=== PATIENT | female | born 1995 | race Caucasian/White ===

== ENCOUNTER 2019-01-27 19:02 | Inpatient (IN) | payer OTHER ==
[~2019-01-27] VITALS: Ht 167.6 cm; Wt 104.4 kg
[2019-01-27] MEDS: NS(*) 0.9% 1000 ML BAG 1,000 ML IV ONE ×2 (19:08→20:17)
--- NOTE | 2019-01-27 19:08 | ER Report ---
History and Physical Time Seen By MD: 19:00 HPI/ROS CHIEF COMPLAINT: Overdose HISTORY OF PRESENT ILLNESS: 23-year-old female proximally 25 minutes prior to EMS arriving. She took 14 Ambien 12.5 mg extended release and approximately 30 Klonopin 0.5 mg. She did state that she vomited. On arrival she is very somnolent, but awake and alert and oriented 3. She denies any alcohol ingestion. She states this is a suicidal attempt. Patient has stable vital signs on arrival. EMS established peripheral IV and laith bloods. Patient takes Adderall and lip to do for mood control. She was seen over at [facility] in September and October with increasing depression with little help or improvement. Patient recently broke up with her boyfriend the last few days. Patient reports having suicidal thoughts for several weeks, has been researching on the Internet and appropriate dose of medication that would kill her. Her physician that prescribed her medication is in [place], [place]. REVIEW OF SYSTEMS: Respiratory: No cough, no dyspnea. Cardiovascular: No chest pain, no palpitations. Gastrointestinal: No vomiting, no abdominal pain. Musculoskeletal: No back pain. Allergies: Coded Allergies: No Known Drug Allergies (Unverified , 01/27/19) Home Meds Reported Medications Zolpidem Tartrate (AMBIEN) 10 Mg Tablet, 12.5 TAB PO QHS, TAB 01/27/19 Clonazepam (CLONAZEPAM) 0.5 Mg Tablet, 0.5 MG PO BID, #6 TAB 01/27/19 Spironolactone (SPIRONOLACTONE) 25 Mg Tablet, 100 MG PO, TAB 01/27/19 Metformin Hcl (METFORMIN HCL) 500 Mg Tablet, 1 TAB PO BID, TAB 01/27/19 Lurasidone Hcl (LATUDA) 20 Mg Tablet, 20 MG PO 01/27/19 Amphet Asp/Amphet/D-Amphet (ADDERALL 20 MG TABLET) 20 Mg Tablet, 20 MG PO 01/27/19 Reviewed Nurses Notes: Yes Old Medical Records Reviewed: Yes Constitutional Vital Sign - Last 24 Hours 01/27/19 01/27/19 01/27/19 01/27/19 19:02 19:02 19:05 19:05 Pulse ? B/P (MAP) 125/95 (105) 125/95 (105) 701/27/19 01/27/19 01/27/19 19:07 19:07 19:09 19:09 Pulse 90 Resp 21 B/P (MAP) 130/87 (101) 130/87 (101) Pulse Ox 99 O2 Flow Rate 3.0 01/27/19 01/27/19 01/27/19 01/27/19 19:10 19:12 19:17 19:17 Temp 98.7 Pulse 84 83 83 Resp 12 10 12 B/P (MAP) 125/95 125/84 (98) 125/84 (98) Pulse Ox 84 96 100 O2 Delivery Room Air 01/27/19 01/27/19 01/27/19 01/27/19 19:20 19:20 19:22 19:27 Pulse 82 84 Resp 16 10 B/P (MAP) 129/87 (101) 129/87 (101) Pulse Ox 100 100 01/27/19 01/27/19 01/27/19 01/27/19 19:30 19:30 19:32 19:32 Pulse 89 89 Resp 10 10 B/P (MAP) 122/78 (93) 122/78 (93) Pulse Ox 100 100 01/27/19 01/27/19 01/27/19 01/27/19 19:37 19:40 19:40 19:42 Pulse 83 84 Resp 16 10 B/P (MAP) 120/82 (95) 120/82 (95) Pulse Ox 100 100 01/27/19 01/27/19 01/27/19 01/27/19 19:47 19:50 19:50 19:52 Pulse 86 84 Resp 19 15 B/P (MAP) 123/81 (95) 123/81 (95) Pulse Ox 100 100 01/27/19 01/27/19 01/27/19 01/27/19 19:57 20:00 20:00 20:02 Pulse 86 81 Resp 9 12 B/P (MAP) 121/81 (94) 121/81 (94) Pulse Ox 100 100 01/27/19 01/27/19 01/27/19 01/27/19 20:02 20:07 20:10 20:10 Pulse 81 79 Resp 12 10 B/P (MAP) 118/80 (93) 118/80 (93) Pulse Ox 100 99 7/801/27/19 01/27/19 01/27/19 20:12 20:17 20:20 20:20 Pulse 80 77 Resp 12 22 B/P (MAP) 122/84 (97) 122/84 (97) Pulse Ox 99 99 01/27/19 01/27/19 01/27/19 01/27/19 20:22 20:27 20:30 20:30 Pulse 77 83 Resp 18 7 B/P (MAP) 123/84 (97) 123/84 (97) Pulse Ox 100 100 01/27/19 01/27/19 01/27/19 01/27/19 20:32 20:32 20:37 20:40 Pulse 94 94 103 Resp 23 23 9 B/P (MAP) 134/89 (104) Pulse Ox 100 100 100 01/27/19 01/27/19 01/27/19 01/27/19 20:40 20:45 20:50 20:55 Pulse 88 90 90 Resp 15 17 13 B/P (MAP) 134/89 (104) 121/81 (94) Pulse Ox 97 98 100 01/27/19 01/27/19 01/27/19 01/27/19 21:00 21:05 21:10 21:15 Pulse 93 97 83 84 Resp 11 14 11 14 B/P (MAP) 121/78 (92) 121/90 (100) Pulse Ox 96 94 100 100 01/27/19 21:20 Pulse 88 Resp 32 B/P (MAP) 122/85 (97) Pulse Ox 96 Intake and Output 01/27/19 01/27/19 01/28/19 15:02 23:02 07:02 Output Total 100 ml Balance -100 ml Physical Exam Vital signs stable, afebrile, pulse ox normal General Appearance: The patient is alert, has no immediate need for airway protection and no current signs of toxicity. Somnolent but alert and oriented 3 HEENT: Pupils equal and round no injection. Oropharynx without redness or exudate Respiratory: Chest is non tender, lungs are clear to auscultation. Cardiac: regular rate and rhythm Gastrointestinal: Abdomen is soft and non tender, no masses, bowel sounds normal. Musculoskeletal: Neck: Neck is supple and non tender. Extremities have full range of motion and are non tender. Skin: No rashes or lesions. DIFFERENTIAL DIAGNOSIS: After history and physical exam differential diagnosis was considered for depression including functional and major depression, situational depression, medication side effect, drugs and alcohol abuse. Medical Decision Making Data Points Result Diagram: 01/27/19190601/27/191906 Laboratory Hematology Test 01/27/19 19:07 01/27/19 19:20 Red Blood Count 4.72 M/uL (4.17-5.56) Mean Corpuscular Volume 87.9 fL (80.0-96.0) Mean Corpuscular Hemoglobin 30.0 pg (26.0-33.0) Mean Corpuscular Hemoglobin Concent 34.1 g/dL (32.0-36.0) Red Cell Distribution Width 14.0 % (11.5-14.5) Mean Platelet Volume 7.7 fL (7.2-11.1) Neutrophils (%) (Auto) 62.1 % (39.4-72.5) Lymphocytes (%) (Auto) 27.5 % (17.6-49.6) Monocytes (%) (Auto) 7.4 % (4.1-12.4) Eosinophils (%) (Auto) 2.5 % (0.4-6.7) Basophils (%) (Auto) 0.5 % (0.3-1.4) Nucleated RBC Relative Count (auto) 0.0 /100WBC Neutrophils # (Auto) 4.8 K/uL (2.0-7.4) Lymphocytes # (Auto) 2.1 K/uL (1.3-3.6) Monocytes # (Auto) 0.6 K/uL (0.3-1.0) Eosinophils # (Auto) 0.2 K/uL (0.0-0.5) Basophils # (Auto) 0.0 K/uL (0.0-0.1) Nucleated RBC Absolute Count (auto) 0.00 K/uL Sodium Level 141 mmol/L (137-145) Potassium Level 3.8 mmol/L (3.5-5.0) Chloride Level 103 mmol/L (98-107) Carbon Dioxide Level 24 mmol/L (22-31) Blood Urea Nitrogen 12 mg/dl (7-18) Creatinine 1.00 mg/dl (0.52-1.04) Glomerular Filtration Rate Calc > 60.0 Random Glucose 106 mg/dl (75-110) Calcium Level 10.1 mg/dl (8.4-10.2) Magnesium Level 1.7 mg/dl (1.7-2.2) Total Bilirubin 0.7 mg/dl (0.2-1.3) Aspartate Amino Transf (AST/SGOT) 20 U/L (0-35) Alanine Aminotransferase (ALT/SGPT) 28 U/L (0-56) Alkaline Phosphatase 66 U/L (0-126) Total Protein 8.2 g/dl (6.3-8.2) Albumin 4.8 g/dl (3.5-5.0) Salicylates Level < 10 mg/L Salicylate Last Dose Date unk Serum Alcohol < 10 mg/dl Urine Color Yellow Urine Clarity Cloudy Urine pH 6.0 pH (4.8-9.5) Urine Specific [place] 1.012 Urine Protein 30 mg/dL (NEGATIVE) Urine Glucose (UA) Negative mg/dL (NEGATIVE) Urine Ketones Negative mg/dL (NEGATIVE) Urine Blood Negative (NEGATIVE) Urine Nitrite Positive (NEGATIVE) Urine Bilirubin Negative (NEGATIVE) Urine Urobilinogen Negative mg/dL (0.2-1.9) Urine Leukocyte Esterase Moderate (NEGATIVE) Urine RBC 1 /HPF (0-2/HPF) Urine WBC 8 /HPF (0-5/HPF) Urine Squamous Epithelial Cells Many /LPF (</=FEW) Urine Bacteria Few /HPF (NONE-FEW) Urine Hyaline Casts Few /LPF (NONE-FEW) Urine Mucus Few /HPF (NONE-FEW) Urine HCG, Qualitative Negative (NEGATIVE) Urine Opiates Screen Negative Urine Barbiturates Screen Negative Ur Tricyclic Antidepressants Screen Negative Urine Phencyclidine Screen Negative Urine Amphetamines Screen Positive Urine Benzodiazepines Screen Negative Urine Cocaine Screen Negative Urine Cannabinoids Screen Negative Chemistry Test 01/27/19 19:07 01/27/19 19:20 White Blood Count 7.8 k/uL (4.5-11.0) Red Blood Count 4.72 M/uL (4.17-5.56) Hemoglobin 14.2 g/dL (12.0-16.0) Hematocrit 41.5 % (34.0-47.0) Mean Corpuscular Volume 87.9 fL (80.0-96.0) Mean Corpuscular Hemoglobin 30.0 pg (26.0-33.0) Mean Corpuscular Hemoglobin Concent 34.1 g/dL (32.0-36.0) Red Cell Distribution Width 14.0 % (11.5-14.5) Platelet Count 289 K/uL (150-450) Mean Platelet Volume 7.7 fL (7.2-11.1) Neutrophils (%) (Auto) 62.1 % (39.4-72.5) Lymphocytes (%) (Auto) 27.5 % (17.6-49.6) Monocytes (%) (Auto) 7.4 % (4.1-12.4) Eosinophils (%) (Auto) 2.5 % (0.4-6.7) Basophils (%) (Auto) 0.5 % (0.3-1.4) Nucleated RBC Relative Count (auto) 0.0 /100WBC Neutrophils # (Auto) 4.8 K/uL (2.0-7.4) Lymphocytes # (Auto) 2.1 K/uL (1.3-3.6) Monocytes # (Auto) 0.6 K/uL (0.3-1.0) Eosinophils # (Auto) 0.2 K/uL (0.0-0.5) Basophils # (Auto) 0.0 K/uL (0.0-0.1) Nucleated RBC Absolute Count (auto) 0.00 K/uL Glomerular Filtration Rate Calc > 60.0 Calcium Level 10.1 mg/dl (8.4-10.2) Magnesium Level 1.7 mg/dl (1.7-2.2) Total Bilirubin 0.7 mg/dl (0.2-1.3) Aspartate Amino Transf (AST/SGOT) 20 U/L (0-35) Alanine Aminotransferase (ALT/SGPT) 28 U/L (0-56) Alkaline Phosphatase 66 U/L (0-126) Total Protein 8.2 g/dl (6.3-8.2) Albumin 4.8 g/dl (3.5-5.0) Salicylates Level < 10 mg/L Salicylate Last Dose Date unk Serum Alcohol < 10 mg/dl Urine Color Yellow Urine Clarity Cloudy Urine pH 6.0 pH (4.8-9.5) Urine Specific [place] 1.012 Urine Protein 30 mg/dL (NEGATIVE) Urine Glucose (UA) Negative mg/dL (NEGATIVE) Urine Ketones Negative mg/dL (NEGATIVE) Urine Blood Negative (NEGATIVE) Urine Nitrite Positive (NEGATIVE) Urine Bilirubin Negative (NEGATIVE) Urine Urobilinogen Negative mg/dL (0.2-1.9) Urine Leukocyte Esterase Moderate (NEGATIVE) Urine RBC 1 /HPF (0-2/HPF) Urine WBC 8 /HPF (0-5/HPF) Urine Squamous Epithelial Cells Many /LPF (</=FEW) Urine Bacteria Few /HPF (NONE-FEW) Urine Hyaline Casts Few /LPF (NONE-FEW) Urine Mucus Few /HPF (NONE-FEW) Urine HCG, Qualitative Negative (NEGATIVE) Urine Opiates Screen Negative Urine Barbiturates Screen Negative Ur Tricyclic Antidepressants Screen Negative Urine Phencyclidine Screen Negative Urine Amphetamines Screen Positive Urine Benzodiazepines Screen Negative Urine Cocaine Screen Negative Urine Cannabinoids Screen Negative Toxicology Test 01/27/19 19:07 01/27/19 19:20 Salicylates Level < 10 mg/L Salicylate Last Dose Date unk Serum Alcohol < 10 mg/dl Urine Opiates Screen Negative Urine Barbiturates Screen Negative Ur Tricyclic Antidepressants Screen Negative Urine Phencyclidine Screen Negative Urine Amphetamines Screen Positive Urine Benzodiazepines Screen Negative Urine Cocaine Screen Negative Urine Cannabinoids Screen Negative Urinalysis Test 01/27/19 19:20 Urine Color Yellow Urine Clarity Cloudy Urine pH 6.0 pH (4.8-9.5) Urine Specific [place] 1.012 Urine Protein 30 mg/dL (NEGATIVE) Urine Glucose (UA) Negative mg/dL (NEGATIVE) Urine Ketones Negative mg/dL (NEGATIVE) Urine Blood Negative (NEGATIVE) Urine Nitrite Positive (NEGATIVE) Urine Bilirubin Negative (NEGATIVE) Urine Urobilinogen Negative mg/dL (0.2-1.9) Urine Leukocyte Esterase Moderate (NEGATIVE) Urine RBC 1 /HPF (0-2/HPF) Urine WBC 8 /HPF (0-5/HPF) Urine Squamous Epithelial Cells Many /LPF (</=FEW) Urine Bacteria Few /HPF (NONE-FEW) Urine Hyaline Casts Few /LPF (NONE-FEW) Urine Mucus Few /HPF (NONE-FEW) Urine HCG, Qualitative Negative (NEGATIVE) EKG/Imaging EKG Interpretation 12 lead EK Rhythm: normal sinus rhythm with sinus arrhythmia [place]: normal QRS: normal, corrected QT 401 ST segments: normal, no evidence of ischemia or dysrhythmia ED Course/Re-evaluation Clinical Indication for ER IV: Hydration, IV Access ED Course Patient was admitted to an examination room. H&P was done. The differential diagnoses was considered. Patient with a serious overdose potentially life- threatening. She will likely need supportive therapy potentially intubation and ventilator management. Patient on arrival is alert and oriented 3, very somnolent but arousable. Her vital signs are stable. Peripheral IVs are established. Patient took Ambien 12.5 continuous release #14, and clonazepam potentially #30 0.5 mg tablets. The prescription is from April 2017. 60 tablets were dispensed. Unsure how many were remaining. Patient estimates approximately 30 tablets. Patient did vomit up some pill fragments, but she is unsure how many came up. Patient was placed on an emergency custodial by police. Patient's tox screen was positive for amphetamines, but surprisingly no benzos despite taking 30 clonazepam. 01/27/2019 7:21:14 pm poison control was contacted for vised met on her management. They recommended supportive therapy for the present time. 01/27/2019 8:29:39 pm it was fairly somnolent and Romazicon 0.2 mg was given IV with little improvement, a 2nd dose of 0.3 mg was given. Patient appears more alert and responsive after a total of 0.5 mg. If patient continues to decompensate. We'll consider a Romazicon continuous drip. 01/27/2019 9:14:09 pm case discussed with Dr. Selene Charles hospitalist on-call, who accepts patient for admission to ICU for further monitoring of her mental status and vital signs after her overdose. Decision to Disposition Date: Jan 27, 2019 Decision to Disposition Time: 21:18 Critical Care Time I spent a total of 120 minutes of critical care time in obtaining history, performing a physical exam, bedside monitoring of interventions, collecting and interpreting tests and discussion with consultants but not including time spent performing procedures. Date of Report: Jan 27, 2019 Examiner: Dr. Sterling Darby Patient Detained By: Law Enforcement Date Patient Detained: Jan 27, 2019 Time Patient Detained: 18:53 Date Long Term Expires: Jan 30, 2019 Time Long Term Expires: 18:53 Legal Status: Police Hold: No Legal Status: Relationship: Single Legal Status: Residence: [facility] Resident Assessment Data Provided By: Patient, Family Member(s) Chief Complaint: Overdose, suicidal attempt HPI/ROS: 23-year-old female with a long history of depression, no previous mental health care, took an overdose of approximately 14. Ambien 12.5 continuous release tablets, and clonazepam 0.5 mg approximately 30 tablets approximately a half hour prior to arrival. Patient did vomit once. On arrival she is very sleepy. Her vitals are stable and noted by EMS. Diagnosis: Overdose Suicidal attempt Depression Risk Formulation: Patient reports multiple stressors. She's been unable to cope. Grandfather recently had a stroke. Patient's having trouble at work and also relationship, trouble with her boyfriend. Current Dangerous Risk Assess: Current Suicide Ideation Current Risk Summary: Patient took a high-risk overdose that is potentially life threatening. She will need to be monitored for 24-48 hours in ICU. Patient was placed on an emergency custodial by police officers. The custodial will be upheld. Depart Departure Latest Vital Signs Vital Signs Date Time Temp Pulse Resp B/P (MAP) Pulse Ox O2 Delivery O2 Flow Rate FiO2 01/27/19 21:20 88 32 122/85 (97) 96 01/27/19 19:10 98.7 Room Air 01/27/19 19:07 3.0 Impression: Primary Impression: Overdose Additional Impressions: Suicide attempt Depression Condition: Improved Disposition: Admitted from ER Problem Qualifiers Primary Impression: Overdose Encounter type: initial encounter Injury intent: intentional self-harm Qualified Codes: T50.902A - Poisoning by unspecified drugs, medicaments and biological substances, intentional self-harm, initial encounter Additional Impressions: Depression Depression Type: major depressive disorder Major depression recurrence: single episode Active/Remission status: currently active Major depression episode severity: unspecified Qualified Codes: F32.9 - Major depressive disorder, single episode, unspecified STERLING DARBY DO Jan 27, 2019 19:08
[2019-01-27 19:17] LABS: PLATELET COUNT, AUTOMATED 289 K/uL (150-450)
--- NOTE | 2019-01-27 19:39 | EKG ---
FACILITY: PATIENT NAME: CHAN MCCALL : [id number] MR: [id number] V: [id number] EXAM DATE: ORDERING PHYSICIAN: MOLLY DARBY TECHNOLOGIST: ALIE Test Reason : OD Blood Pressure : / mmHG Vent. Rate : 073 BPM Atrial Rate : 073 BPM P-R Int : 152 ms QRS Dur : 088 ms QT Int : 364 ms P-R-T Axes : 061 064 033 degrees QTc Int : 401 ms Sinus rhythm No acute appearing findings No previous ECGs available Confirmed by LATRICE VELAZQUEZ ([id number]) on 01/27/2019 7:45:58 PM Referred By: Confirmed By:LATRICE VELAZQUEZ
[2019-01-27] MEDS ORDERED: FLUMAZENIL 0.1 MG/ML 5 ML VIAL IVP ONE ×2 (20:05→23:40)
[2019-01-27] MEDS ORDERED: METF-450 PO (21:34)
[2019-01-27] MEDS ORDERED: LURA20TA PO (21:34)
[2019-01-27] MEDS ORDERED: AMPH20TA18 PO (21:34)
[2019-01-27] MEDS ORDERED: SPIR25TA80 PO (21:34)
[2019-01-27] MEDS ORDERED: CLON-331 PO (21:34)
[2019-01-27] MEDS ORDERED: ZOLP-350 PO (21:34)
[2019-01-27 22:54] VITALS: BP 137/90
[2019-01-27] MEDS ORDERED: NS(*) 0.9% 1000 ML BAG 1,000 ML IV PRN (23:05)
--- NOTE | 2019-01-27 23:29 | History & Physical ---
History of Present Illness Chief Complaint "I overdosed and tried to kill myself" History of Present Illness 23yo female with PMHx significant for depression and anxiety with suicidal ideations, polycystic ovarian disease. She reports she has had depression "for a long time" and has had intermittent suicidal ideations, but has not been admitted for a suicide attempt. She has been treated for depression/anxiety with Latuda, Klonopin, Ambien. She states she took 50 total of her Ambien and Klonopin in an attempt to kill herself. She denied any other medication or substance ingestion. She did vomit once while still at home and reports some pi lls were present. She was contacted shortly after this by her mother who then contacted the police to check on her. She was then transported to the [facility] ER. She was found to be moderately somnolent and mildly hypoxic, but otherwise stable. She was given one dose of Romazicon 0.5mg IV. At the present time she is tearful, awake, alert, and oriented x3. History Problems: (1) PCOD (polycystic ovarian disease) Status: Chronic (2) Anxiety associated with depression Status: Chronic (3) Depression Status: Chronic Home Meds Reported Medications Zolpidem Tartrate (AMBIEN) 10 Mg Tablet, 12.5 TAB PO QHS, TAB 01/27/19 Clonazepam (CLONAZEPAM) 0.5 Mg Tablet, 0.5 MG PO BID, #6 TAB 01/27/19 Spironolactone (SPIRONOLACTONE) 25 Mg Tablet, 100 MG PO, TAB 01/27/19 Metformin Hcl (METFORMIN HCL) 500 Mg Tablet, 1 TAB PO BID, TAB 01/27/19 Lurasidone Hcl (LATUDA) 20 Mg Tablet, 20 MG PO 01/27/19 Amphet Asp/Amphet/D-Amphet (ADDERALL 20 MG TABLET) 20 Mg Tablet, 20 MG PO 01/27/19 Allergies: Coded Allergies: No Known Drug Allergies (Unverified , 01/27/19) Other Social/Family Hx She is single and lives alone. She is sexually active. 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 Hx Smoking: No Hx Alcohol Use: Yes (OCC.) Hx Substance Use Disorder: No Review of Systems Constitutional: No Fever, No Chills Neurological: No Syncope Cardiovascular: No Chest Pain Respiratory: No Shortness of Breath Gastrointestinal: Nausea, Vomiting; No Hematemesis, No Hematochezia, No Melena, No Abdominal Pain Genitourinary: Other (menses are irregular); No Dysuria, No Hematuria Exam Vital Signs Vital Signs Date Time Temp Pulse Resp B/P (MAP) Pulse Ox O2 Delivery O2 Flow Rate FiO2 01/27/19 22:40 80 18 134/108 (117) 96 01/27/19 19:10 98.7 Room Air 01/27/19 19:07 3.0 General Appearance: Alert, Awake Neuro: No Gross deficits Eyes: PERRLA ENT: Oropharynx Clear Neck: No Masses Cardiovascular: Regular Rate and Rhythm, No Edema, No JVD Respiratory: Clear to Auscultation GI: Abd Soft and Non-Tender (BS present) : No CVA Tenderness Lymph: No Adenopathy Extremities: Warm, Perfused Integumentary: Skin Intact without Lesion / Mass Psych: Alert & Oriented X3 Medical Decision Making Data Points Result Diagram: 01/27/19190601/27/191906 Item Value Date Time Serum Alcohol < 10 mg/dl 01/27/191906 Urine Cannabinoids Screen Negative 01/27/191919 Urine Cocaine Screen Negative 01/27/191919 Urine Benzodiazepines Screen Negative 01/27/191919 Urine Amphetamines Screen Positive 01/27/191919 Urine Phencyclidine Screen Negative 01/27/191919 Ur Tricyclic Antidepressants Screen Negative 01/27/191919 Urine Barbiturates Screen Negative 01/27/191919 Urine Opiates Screen Negative 01/27/191919 Acetaminophen Level < 10 ug/ml 01/27/191906 Salicylates Level < 10 mg/L 01/27/191906 Salicylate Last Dose Date unk 01/27/191906 Urine HCG, Qualitative Negative 01/27/19 192 Urine Mucus Few /HPF 01/27/191919 Urine Hyaline Casts Few /LPF 01/27/191919 Urine Bacteria Few /HPF 01/27/19 1920 Urine Squamous Epithelial Cells Many /LPF H 01/27/191919 Urine WBC 8 /HPF 01/27/191919 Urine RBC 1 /HPF 01/27/191919 Urine Leukocyte Esterase Moderate H 01/27/191919 Urine Urobilinogen Negative mg/dL 01/27/191919 Urine Bilirubin Negative 01/27/191919 Urine Nitrite Positive H 01/27/191919 Urine Blood Negative 01/27/191919 Urine Ketones Negative mg/dL 01/27/191919 Urine Glucose (UA) Negative mg/dL 01/27/191919 Urine Protein 30 mg/dL 01/27/191919 Urine Specific [place] 1.012 01/27/191919 Urine pH 6.0 pH 01/27/191919 Urine Clarity Cloudy 01/27/191919 Urine Color Yellow 01/27/191919 Albumin 4.8 g/dl 01/27/191906 Total Protein 8.2 g/dl 01/27/191906 Alkaline Phosphatase 66 U/L 01/27/191906 Alanine Aminotransferase (ALT/SGPT) 28 U/L 01/27/191906 Aspartate Amino Transf (AST/SGOT) 20 U/L 01/27/191906 Total Bilirubin 0.7 mg/dl 01/27/191906 Magnesium Level 1.7 mg/dl 01/27/191906 Calcium Level 10.1 mg/dl 01/27/191906 EKG / Imaging EKG Interpretation PATIENT NAME: CHAN MCCALL : [id number] MR: [id number] V: [id number] EXAM DATE: ORDERING PHYSICIAN: OMLLY DARBY TECHNOLOGIST: ALIE Test Reason : OD Blood Pressure : / mmHG Vent. Rate : 073 BPM Atrial Rate : 073 BPM P-R Int : 152 ms QRS Dur : 088 ms QT Int : 364 ms P-R-T Axes : 061 064 033 degrees QTc Int : 401 ms Sinus rhythm No acute appearing findings No previous ECGs available Confirmed by LATRICE VELAZQUEZ ([id number]) on 01/27/2019 7:45:58 PM Referred By: Confirmed By:LATRICE VELAZQUEZ Assessment and Plan Problems: (1) Overdose Status: Acute Assessment & Plan: She ingested fairly large doses of the Ambien and clonazepam. She is currently awake and alert. She is able to maintain her airway. Her vital signs are stable, but does require a small amount of oxygen to maintain saturations. She will be admitted to the ICU for 1:1 monitoring and suicide precautions. Will use repeat doses of the Romazicon if needed. Will recheck acetaminophen level approximately four hours after initial. Watch closely. (2) Suicidal intent Status: Acute Assessment & Plan: She does state she has thought about suicide frequently and did intend to kill herself today. (3) Depression Status: Chronic Assessment & Plan: Chronic. She has been managed with Latuda. She has also been on Klonopin for associated anxiety and Ambien for insomnia. Will hold her medications until psychiatry has a chance to evaluate her tomorrow. (4) PCOD (polycystic ovarian disease) Status: Chronic Assessment & Plan: Will continue her metformin and spironolactone. Venous Thromboembolism Antithrombotics Is Pt On Any Antithrombotics?: No (MATTY leavitt and SCDs) Exam Sepsis Risk: No Definite Risk LATRICE VELAZQUEZ MD Jan 27, 2019 23:29
[2019-01-28] VITALS (24 sets, daily range): BP systolic 90–160; BP diastolic 46–104; Ht 167.6 cm; Wt 104.4 kg
[2019-01-28 05:10] LABS: PLATELET COUNT, AUTOMATED 205 K/uL (150-450)
[2019-01-28] MEDS ORDERED: metFORMIN HCL 500 MG TAB PO SCH (08:00)
[2019-01-28] MEDS ORDERED: NITROFURANTOIN MONO 100 MG PO SCH (09:00)
[2019-01-28] MEDS ORDERED: metFORMIN HCL XR 500 MG TABCR PO SCH ×2 (09:00)
[2019-01-28] MEDS ORDERED: SPIRONOLACTONE 25 MG TAB PO SCH (09:00)
[2019-01-28] MEDS ORDERED: LURASIDONE 40 MG TAB PO SCH ×2 (09:00→21:00)
[2019-01-28] MEDS ORDERED: DEXTROAMPHETAMINE PO SCH (09:00)
[2019-01-28] MEDS ORDERED: AMPHETAMINE PO SCH (09:00)
[2019-01-28] MEDS ORDERED: METF-407 PO ×2 (11:07)
[2019-01-28] MEDS ORDERED: NITR-105 PO (11:08)
--- NOTE | 2019-01-28 11:29 | Hospitalist Depart ---
Discharge Summary Reason for Hosp/Final Diag: (1) Overdose Status: Acute Hospital Course & Plan: She ingested fairly large doses of the Ambien and clonazepam. She remained arousable and oriented throughout hospitalization. Tylenol level negative, she is medically stable for further evaluation in S unit. (2) Suicidal intent Status: Acute Hospital Course & Plan: She does state she has thought about suicide frequently and did intend to kill herself. (3) Depression Status: Chronic Hospital Course & Plan: Chronic. She has been managed with Latuda, she also takes Adderall XR for ADD. She has also been on Klonopin for associated anxiety and Ambien for insomnia. (4) PCOD (polycystic ovarian disease) Status: Chronic Hospital Course & Plan: Will continue her metformin and spironolactone. Departure Weight (Pounds): 230 Weight (Ounces): 2.0 Result Diagram: 01/28/1944601/28/19446 Condition: Improved Discharge: [facility] Discharge Instructions Home Meds Reported Medications Nitrofurantoin Monohyd/M-Cryst (MACROBID 100 MG CAPSULE) 100 Mg Capsule, 100 MG PO BID, CAPSULE X 5 CORDERO DOSES 01/28/19 Metformin Hcl (GLUCOPHAGE XR) 500 Mg Tab.er.24h, 1 TAB PO BID, TAB 01/28/19 Metformin Hcl (GLUCOPHAGE XR) 500 Mg Tab.er.24h, 1 TAB PO BID, TAB 01/28/19 Spironolactone (SPIRONOLACTONE) 25 Mg Tablet, 100 MG PO, TAB 01/27/19 Lurasidone Hcl (LATUDA) 20 Mg Tablet, 20 MG PO QHS 01/27/19 Amphet Asp/Amphet/D-Amphet (ADDERALL 20 MG TABLET) 20 Mg Tablet, 20 MG PO 01/27/19 Discontinued Reported Medications Zolpidem Tartrate (AMBIEN) 10 Mg Tablet, 12.5 TAB PO QHS, TAB 01/27/19 Clonazepam (CLONAZEPAM) 0.5 Mg Tablet, 0.5 MG PO BID, #6 TAB 01/27/19 Metformin Hcl (METFORMIN HCL) 500 Mg Tablet, 1 TAB PO BID, TAB 01/27/19 Diet: Regular Activity: As Tolerated Special Instructions: Continue nitrofurantoin to complete 3 days therapy. Follow up with PCP or psychiatry as instructed by S on discharge from their unit. Venous Thromboembolism Antithrombotics Is Pt On Any Antithrombotics?: No (MATTY leavitt and SCDs) Problem Qualifiers (1) Overdose: Encounter type: initial encounter Injury intent: intentional self-harm Qualified Codes: T50.902A - Poisoning by unspecified drugs, medicaments and biological substances, intentional self-harm, initial encounter (2) Depression: Depression Type: major depressive disorder Major depression recurrence: single episode Active/Remission status: currently active Major depression episode severity: unspecified Qualified Codes: F32.9 - Major depressive disorder, single episode, unspecified LAZARO GARCIA DO Jan 28, 2019 11:29
== END 2019-01-28 13:01 | DRG 918 ==
LOC: ER 19:13 → ICU 21:22
PROVIDERS: ADMIT Internal Medicine; ATTEND Internal Medicine
DX: T42.6X2A Poisoning by other antiepileptic and sedative-hypnotic drugs, intentional self-harm, initial encounter (principal); T42.4X2A Poisoning by benzodiazepines, intentional self-harm, initial encounter; F32.9 Major depressive disorder, single episode, unspecified; F41.9 Anxiety disorder, unspecified; Y92.009 Unspecified place in unspecified non-institutional (private) residence as the place of occurrence of the external cause; E28.2 Polycystic ovarian syndrome
CPT/HCPCS: 36415; 80305; 80320; 80329; 81001; 81025; 82040; 82247; 82310; 82374; 82435; 82565; 82947; 83735; 84075; 84132; 84155; 84295; 84443; 84450; 84460; 84520; 85025; 87077; 87088; 87186; 93005; 96360; 96361; 99291; 99292; A4353; J3490; J7030

== ENCOUNTER → 2019-01-27 | Outpatient (CLI) | payer OTHER ==
[~2019-01-27] MED LIST: AMPH20CA15 PO; AMPH20TA18 PO; CLON-331 PO; LURA20TA PO; METF-407 PO; METF-450 PO; MULT-1379 PO; NITR-105 PO; SPIR25TA80 PO; TOPI-119 PO; TRAZ150T8 PO; ZOLP-350 PO
[2019-01-28 10:03] VITALS: BMI 37.1
== END ==
LOC: AMB 18:43
PROVIDERS: ATTEND Nurse Practitioner
DX: T42.4X2A Poisoning by benzodiazepines, intentional self-harm, initial encounter (principal)
CPT/HCPCS: A0425; A0427

== ENCOUNTER 2019-01-28 12:43 | Inpatient (IN) | payer OTHER ==
[2019-01-28 10:03] VITALS: Wt 104.4 kg
[2019-01-28 12:43] VITALS: BP 124/72
[~2019-01-28 12:43] MED LIST changes: -AMPH20CA15 PO; -MULT-1379 PO; -TOPI-119 PO; -TRAZ150T8 PO
[2019-01-28] MEDS ORDERED: MAG HYD/AL HYD/SIMETH 30ML UDC PO PRN (13:20)
[2019-01-28] MEDS ORDERED: SPIRONOLACTONE 25 MG TAB PO SCH (14:00)
--- NOTE | 2019-01-28 14:37 | BHS - Psychiatric Evaluation ---
ER - Title 25 MHE Evaluation Title 25 Evaluation Patient Detained By: Physician (Dr. Sterling Ramon uphed this long term), Law Enforcement (Law Enforcement initiated this long term) Referral Source: Professional: Law Enforcement Date Patient Detained: Jan 27, 2019 Time Patient Detained: 18:53 Date Penitentiary Expires: Jan 30, 2019 Time Penitentiary Expires: 18:53 Legal Status: Police Hold: No Legal Status: Residence: [facility] Resident Assessment Data Provided By: Patient, Other Source ([facility] staff and [facility] spanish medical interpreter) HPI/ROS: Per Dr. Cano, ER Physician, "23-year-old female proximally 25 minutes prior to EMS arriving. She took 14 Ambien 12.5 mg extended release and approximately 30 Klonopin 0.5 mg. She did state that she vomited. On arrival she is very somnolent, but awake and alert and oriented 3. She denies any alcohol ingestion. She states this is a suicidal attempt. Patient has stable vital signs on arrival. EMS established peripheral IV and laith bloods. Patient takes Adderall and lip to do for mood control. She was seen over at [facility] in September and October with increasing depression with little help or improvement. Patient recently broke up with her boyfriend the last few days. Patient reports having suicidal thoughts for several weeks, has been researching on the Internet and appropriate dose of medication that would kill her. Her physician that prescribed her medication is in [place], [place]." Admit due to SI or Attempt: Yes Suicide Plan: Has Plan with Access Alcohol or Drugs Involved: No Is Patient Info Reliable: Yes Is Collateral Info Reliable: Yes Current Home Psych Meds: Ambien and Klonopin Mental Status Exam General Appearance: Casual, Well Groomed, Good Eye Contact, Cooperative, Polite, Good Interaction Speech: Clear Mood: Dysthmic/Depressed Affect: Sad, Other (Looks a little fearful and overwhelmed, said she feels upset.) Thought Process: Organized Thought Content: Suicidal Ideation (Acknowledges she attempted to take her life, says she feel "stupid," about having overdosed now. Cries as she states that she feels badly about attempting to .) Sensorium: Clear Cognition: Alert & Oriented-Person, Alert & Oriented-Place; No Uhloe-Ofdadfol-Dhdzauvtn Memory: Immediate, Recent Insight Judgment: Poor Sleep: Normal Hallucinations: Denies Delusions: Denies Current Risk & History Current Dangerous Risk Assessm: Current Suicide Ideation (Less than 24 hours ago, patient was suicidal. She is now remorseful and seems overwhelmed.) Past Dangerous Risk Assessm: Other (Denies past attempts to this interviewer.) Previous Suicide Attempt: No Previous Attempt Previous Psychiatric Illness: Yes (Mood Disorder) Previous Psychiatric Treatment: Yes Risk Assessment & Disposition Evaluated Risk Assessment: Risk for patient is assessed as high. Patient acknowledges that her overdose was an attempt to end her life. Impression: Primary Impression: Suicidal intent Additional Impressions: Overdose Depression Meets Mental Illness Req.: Yes Meets Dangerousness Req.: Yes Emergency Penitentiary to be: Upheld Decision Comment: As a result of an intentional overdose and patient reaching that level of emotional and behavioral dysregulation, she requires a safe and stabilizing environment. She will be given case management to ensure continuity of care when it is appropriate for her to discharge from inpatient to outpatient care. Date of Decision: Jan 28, 2019 Time of Decision: 13:00 Patient is Medically Stable at: Yes Disposition: S (Transfered to [facility] from ICU) Problem Qualifiers JOSS MYERS LPC Jan 28, 2019 14:37
[2019-01-28] MEDS: SPIRONOLACTONE 25 MG TAB PO SCH (14:52)
[2019-01-28 16:53] VITALS: BP 112/58
[2019-01-28] MEDS: LURASIDONE 40 MG TAB PO SCH (20:51)
[2019-01-28] MEDS: NITROFURANTOIN MONO 100 MG PO SCH (20:51)
[2019-01-28] MEDS: metFORMIN HCL XR 500 MG TABCR PO SCH (20:52)
[2019-01-28] MEDS ORDERED: DIAZEPAM 10 MG TAB PO ONE (21:00)
[2019-01-28 21:04] VITALS: BP 116/75
[2019-01-29 04:38] VITALS: BP 96/68
--- NOTE | 2019-01-29 08:12 | Antimicrobial Stewardship ---
Antimicrobial Time Out Antimicrobial Stewardship Service: Hospitalist, Other Indications: UTI Antimicrobial Used NITROFURANTOIN 100MG BID Start Date: Jan 28, 2019 Culture Results: Yes (G- SHERON) Eligible for PO Conversion Eligable for PO Conversion: Yes (ON PO) Reviewed with Provider Reviewed w/ Provider on Rounds: No Comments Comments MACROBID 100MG BID FOR 5-7 DAYS FOR TREATMENT OF UTI. PATIENT IS AFEBRILE, URINE SHOWS MARKERS OF INFECTION. CONTINUATION OF OUTPATIENT REGIMEN ON ADMISSION. DALY DODSON Jan 29, 2019 08:12
[2019-01-29] MEDS: MULTIVITAMINS TAB PO SCH (08:53)
[2019-01-29] MEDS: metFORMIN HCL XR 500 MG TABCR PO SCH ×2 (08:53→20:32)
[2019-01-29] MEDS: AMPHETAMINE PO SCH (08:53)
[2019-01-29] MEDS: DEXTROAMPHETAMINE PO SCH (08:53)
[2019-01-29] MEDS: NITROFURANTOIN MONO 100 MG PO SCH ×2 (08:53→20:32)
[2019-01-29] MEDS: SPIRONOLACTONE 25 MG TAB PO SCH ×2 (09:00→13:57)
[2019-01-29 09:07] VITALS: BP 103/66
[2019-01-29 13:30] VITALS: BP 117/74
[2019-01-29] MEDS: LURASIDONE 40 MG TAB PO SCH (20:34)
[2019-01-29] MEDS ORDERED: traZODone HCL 50 MG TAB PO SCH (21:00)
[2019-01-29] MEDS ORDERED: TOPIRAMATE 25 MG TAB PO SCH (21:00)
[2019-01-29 21:22] VITALS: BP 116/75
[2019-01-30 05:25] VITALS: BP 94/38
[2019-01-30] MEDS: AMPHETAMINE PO SCH (08:16)
[2019-01-30] MEDS: DEXTROAMPHETAMINE PO SCH (08:16)
[2019-01-30] MEDS: metFORMIN HCL XR 500 MG TABCR PO SCH (08:17)
[2019-01-30] MEDS: MULTIVITAMINS TAB PO SCH (08:18)
[2019-01-30] MEDS: NITROFURANTOIN MONO 100 MG PO SCH (08:18)
[2019-01-30 08:25] VITALS: BP 90/60
[2019-01-30] MEDS: SPIRONOLACTONE 25 MG TAB PO SCH ×2 (08:26→14:06)
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
[2019-01-30 10:16] VITALS: BP_SYST 110; BP_SYST 118; BP_DIAS 72
[2019-01-30 12:31] VITALS: BP 119/64
[2019-01-30 13:37] VITALS: BP 110/74
[2019-01-30] MEDS ORDERED: AMPH20CA15 PO (14:35)
[2019-01-30] MEDS ORDERED: TRAZ150T8 PO (14:39)
[2019-01-30] MEDS ORDERED: MULT-1379 PO (14:42)
[2019-01-30] MEDS ORDERED: TOPI-119 PO (14:42)
--- NOTE | 2019-01-31 16:46 | SCHAAF DISCHARGE ---
DATE OF ADMISSION: January 28, 2019 DATE OF DISCHARGE: January 30, 2019 ATTENDING PHYSICIAN Billy Costa MD Patient was seen at approximately 1100 hours in the a.m. of 30 January 2019 for note concerning this dictation. FINAL DIAGNOSES 1. Anxiety disorder, unspecified. 2. History of attention deficit disorder. 3. Persisting depressive disorder. 4. Cluster B personality traits. 5. Very supportive family. REASON FOR ADMISSION This is a very pleasant 23-year-old female who reportedly took a significant overdose of her Ambien and Klonopin, which were prescribed to her. Patient then reported vomiting shortly before her mother contacted her, and she was brought to the Emergency Room. Patient placed initially overnight on ICU for observation. Patient was somewhat somnolent, although somnolence did not rise to the level expected for the amount verbalized overdosed. Patient was medically cleared and transferred to Behavioral Health Unit for further evaluation, where patient was immediately very cooperative. She took an active role in her treatment. Patient agreed to no longer take Klonopin or Ambien and follow up with outpatient providers very closely upon discharge. Please see H and P for further details. Patient able to identify specific environmental stressors and identifiable stressors prior to overdose as well. Patient was discharged and no longer having any suicidal thoughts. No homicidal thoughts. PHYSICAL EXAMINATION Please see emergency room note and ICU notes. VITAL SIGNS: Vital signs at the time of admission: Temperature 98.7, pulse 84, respiratory rate 12, blood pressure 125/95, and pulse oximetry 84% and low on room air at time of admission. Upon departure from Behavioral Health Unit, vital signs showed temperature 99.0, pulse 85, respiratory rate 16, blood pressure 119/64, pulse oximetry 98% on room air. LABORATORY DATA Upon admission, CBC was unremarkable. CMP unremarkable as well. TSH 2.30. Urinalysis positive for urine nitrites, positive for leukocyte esterase, with 8 white blood cells present. screen negative. Toxicology screen positive for amphetamines. Patient again prescribed Adderall. Undetectable serum alcohol level. No other drugs of abuse found. Subsequent urinary culture was sensitive for nitrofurantoin, otherwise Macrobid. MENTAL STATUS EXAMINATION AT TIME OF DISCHARGE GENERAL APPEARANCE, BEHAVIOR, AND ATTITUDE: Very polite, cooperative 23-year-old female, interacting well with this provider, other treatment team staff, and multiple family members present at time of discharge. No periods of tearfulness. No bizarre mannerisms or tics. SPEECH: Within normal limits. Regular rate, rhythm, volume, and tone. MOOD: Described as improved and good. AFFECT: Mostly full at time of departure and mood congruent. THOUGHT PROCESSES: Goal directed, logical. No loose associations or flight of ideas. THOUGHT CONTENT: Free of auditory or visual hallucinations, ideas of reference, thought broadcasting, delusions, obsessions, compulsions. Patient adamantly denying suicidal or homicidal ideation at time of discharge. No parasuicidal behaviors were noted throughout patient's stay on Behavioral Health Unit. SENSORIUM: Clear. COGNITION: Alert and oriented to person, place, time, situation. MEMORY: Immediate, recent, remote estimated intact. INTELLIGENCE: Average based on interview. INSIGHT AND JUDGMENT: Considered grossly intact and appropriate for ongoing outpatient management. RESULTS OF TESTING Imaging: None. Laboratory data: See above. CONSULTATIONS None. TREATMENT Patient received medications, participated in individual and group therapy. HOSPITAL COURSE This is a very pleasant 23-year-old female admitted without incident to Behavioral Health Unit after verbalized significant overdose on Klonopin and Ambien and medical clearance from the ICU. Patient agreeable to stopping all future use of Klonopin and Ambien. Patient responded well on the unit with the addition to her other outpatient medications including Latuda, Adderall, trazodone, and Topamax given for headaches with potential secondary benefit of help with weight loss, mood stability, and lowering of anxiety. Patient quickly improved, very remorseful about overdose, and interacting well with family members. CONDITION OF PATIENT ON DISCHARGE Stable. Considered a minimal risk to herself or others and appropriate for outpatient care. DISPOSITION Patient would follow up with primary health care provider for continued medication management. She would also follow up with [facility], specifically there for therapy including dialectical behavioral therapy. DISCHARGE MEDICATIONS 1. Patient would remain on Adderall XR 20 mg daily. 2. Aldactone was reduced to 50 mg b.i.d. due to some hypotensive concerns which were asymptomatic. 3. Patient taking spironolactone primarily for ongoing treatment of polycystic ovaries. 4. Trazodone, the patient will remain on 50 to 150 mg to take one hour prior to intention to sleep, p.r.n. for insomnia. 5. Patient will remain on Glucophage XR 500 mg twice daily. Again, this is for polycystic ovaries. Patient is not suffering from diabetes. 6. Latuda 20 mg at bedtime. 7. Macrobid 100 mg twice daily for next four days for UTI. 8. Multivitamin with minerals. 9. Topamax 25 mg at bedtime. PLAN Again, patient would stop Klonopin and all use of Ambien and take medications as prescribed. Crisis line was given should symptoms return. Patient would follow up with primary care provider for recheck of UTI should symptoms persist. Risks, benefits, and alternatives of above discharge plan were reviewed, this competent patient accepting of discharge plan as well as multiple family members present at time of discharge. NERID
== END 2019-01-30 15:53 | disposition home or self-care (01) | DRG 880 ==
LOC: BHS 12:43
PROVIDERS: ADMIT Psychiatry & Neurology Psychiatry; ATTEND Psychiatry & Neurology Psychiatry
DX: F41.9 Anxiety disorder, unspecified (principal); N39.0 Urinary tract infection, site not specified; F34.1 Dysthymic disorder; T42.6X2D Poisoning by other antiepileptic and sedative-hypnotic drugs, intentional self-harm, subsequent encounter; T42.4X2D Poisoning by benzodiazepines, intentional self-harm, subsequent encounter; F60.9 Personality disorder, unspecified
CPT/HCPCS: 36416; 82948